=== PATIENT | male | born 1970 | race Caucasian/White ===

== ENCOUNTER 2017-08-24 19:35 | Emergency (ER) | payer OTHER ==
[~2017-08-24] VITALS: Ht 180.3 cm; Wt 100.0 kg
[2017-08-24] MEDS ORDERED: ZOCO10TA PO (20:01)
[2017-08-24] MEDS ORDERED: CARD360C PO (20:01)
[2017-08-24 22:28] VITALS: BP 156/96
== END 2017-08-24 22:30 | disposition home or self-care (01) ==
LOC: EDBD 19:35 → M ED 19:35
DX: Z04.1 Encounter for examination and observation following transport accident (principal); S00.81XA Abrasion of other part of head, initial encounter; V43.62XA Car passenger injured in collision with other type car in traffic accident, initial encounter; Y92.411 Interstate highway as the place of occurrence of the external cause; Y93.89 Activity, other specified; Y99.8 Other external cause status; I10 Essential (primary) hypertension; E78.5 Hyperlipidemia, unspecified; Z79.899 Other long term (current) drug therapy